=== PATIENT | male | born 1965 | race Caucasian/White ===

== ENCOUNTER 2025-03-20 13:58 | Emergency (ER) | payer BC ==
[~2025-03-20] VITALS: Ht 177.8 cm; Wt 106.6 kg
[2025-03-20 14:11] VITALS: O2SAT 97
== END 2025-03-20 15:02 | disposition left against medical advice (07) ==
LOC: ER 13:58
DX: I10 Essential (primary) hypertension (principal); K21.9 Gastro-esophageal reflux disease without esophagitis; F41.0 Panic disorder [episodic paroxysmal anxiety]
CPT/HCPCS: A4606; A4663